=== PATIENT | female | born 1950 | race Caucasian/White ===

== ENCOUNTER → 2016-03-03 | Outpatient (REF) | payer MEDICARE, BC, OTHER | LOC: M SMT 16:52 | PROVIDERS: ATTEND Nurse Practitioner Women's Health | DX: R31.29 Other microscopic hematuria (principal) ==

== ENCOUNTER → 2016-05-26 | Outpatient (CLI) | payer MEDICARE, BC ==
--- NOTE | 2016-05-26 14:40 | REPMRS ---
Patient History The patient states she had a clinical breast exam in 05/22 Patient is postmenopausal and had first child at age 29. Family history of breast cancer in maternal aunt under age 50. Benign stereotactic core biopsy of the left breast, January 18, 2009. Benign lumpectomy of the left breast, 1996. Taking estrogen for 6 years 6 months. Digital Woman Screen Mammo: May 26, 2016 - Exam #: [id number] Bilateral CC and MLO view(s) were taken. Technologist: Maria Del Rosario Pendleton, Technologist Prior study comparison: May 14, 2015, digital woman screen mammo performed at [facility]. June 09, 2014, right breast digital mammo diagnostic unilateral, performed at [facility]. FINDINGS: The breast tissue is heterogeneously dense. This may lower the sensitivity of mammography. There is a moderate amount of heterogeneously dense fibroglandular tissue which is fairly symmetric. There is a stable soft tissue mass the inferolateral quadrant of the right breast and a needle biopsy marker clip is seen anteriorly adjacent to a stable nodule in the upper outer quadrant of the left breast. There is no interval development of dominant mass, architectural distortion, or clustered microcalcification typical of malignancy. There has been no change in the appearance of the mammogram from the prior studies. ASSESSMENT: BI-RADS/ACR category 1 mammogram. Negative. Recommendation Routine screening mammogram of both breasts in 1 year (for women over age 40). This mammogram was interpreted with the aid of an FDA-approved computer-aided dectection system. Electronically Signed By: Pantera Doll MD 05/26/16 5751
== END ==
LOC: M WHC 13:12
PROVIDERS: ATTEND Nurse Practitioner Family
DX: Z01.419 Encounter for gynecological examination (general) (routine) without abnormal findings (principal); Z12.31 Encounter for screening mammogram for malignant neoplasm of breast; Z78.0 Asymptomatic menopausal state; Z92.89 Personal history of other medical treatment; Z12.12 Encounter for screening for malignant neoplasm of rectum
CPT/HCPCS: 82270; G0101; G0202

== ENCOUNTER → 2016-08-22 | Outpatient (CLI) | payer MEDICARE, BC, OTHER ==
[~2016-08-22] MED LIST: BUDE180INH; ESTR1CRE; LEVO75TA4; NAPR500T PO; NEXI20CA PO; SALMDISK; SERT-155
--- NOTE | 2016-08-22 13:58 | REP ---
Low-dose lung screening CT without IV contrast: Comparison is a chest CT of 05/27/2009. Scanning is performed without IV contrast and images are presented at lung windowing only. There is a spiculated semi solid density in the anterior segment right lower lobe on images 70 measuring 2.2 cm in diameter. There are two spiculated nodular densities have become confluent at the inferior tip of the lingula on image 64. The more medial nodule measuring 11 mm and the more lateral nodule measuring 11 mm. Once slice a more inferiorly on image 65. These too nodular densities become confluent. There are no other nodules or masses. There are no infiltrates or effusions. Impression: The largest lesion is category 4B. The recommendation of for PET scan and possibly tissue sampling. Signed by Vicente Contreras MD 08/22/2016 01:49 P
== END ==
LOC: M RAD 12:42
PROVIDERS: ATTEND Internal Medicine Pulmonary Disease
DX: Z12.2 Encounter for screening for malignant neoplasm of respiratory organs (principal); R91.8 Other nonspecific abnormal finding of lung field; J44.9 Chronic obstructive pulmonary disease, unspecified; F17.210 Nicotine dependence, cigarettes, uncomplicated

== ENCOUNTER → 2016-09-25 | Outpatient (CLI) | payer MEDICARE, BC, OTHER ==
--- NOTE | 2016-09-25 11:58 | REP ---
RIGHT FOOT SERIES: Four views. HISTORY: Injury. Pain. FINDINGS: Four views of the right foot show overall normal mineralization. There is moderate osteoarthritis at the 1st MTP joint. Overlying soft tissue swelling is seen. No erosive change is seen. No fractures noted. Plantar and Achilles calcaneal spurring is visible on the lateral radiograph. IMPRESSION: No fracture seen. Moderate first MTP joint osteoarthritis. Heel spurs. Signed by Dipak Doll MD 09/25/2016 12:38 P
--- NOTE | 2016-09-25 12:05 | REP ---
Right ankle series: Four views. History: Lateral ankle injury. Pain. Findings: Four views right ankle demonstrate anterolateral soft-tissue swelling. Ankle mortise is intact. No fracture is seen. There is Achilles and plantar calcaneal spurring. Impression: Moderate soft tissue swelling anterolaterally. No fracture seen. Signed by Dipak Doll MD 09/25/2016 12:38 P
== END ==
LOC: M WUC 11:01
PROVIDERS: ATTEND Physician Assistant
DX: M25.571 Pain in right ankle and joints of right foot (principal); M77.31 Calcaneal spur, right foot; M19.071 Primary osteoarthritis, right ankle and foot; M25.471 Effusion, right ankle

== ENCOUNTER → 2016-09-26 | Outpatient (CLI) | payer MEDICARE, BC, OTHER ==
--- NOTE | 2016-09-26 13:57 | REP ---
PET/CT: History: Diagnosing solitary pulmonary nodule right lower lobe. Comparison low-dose screening CT August 22, 2016, non-solid 2.3 cm opacity in the right lower lobe. TECHNIQUE: 51 minutes following the intravenous injection of a 8.6 mCi dose of F-18 FDG, three-dimensional PET scintigraphy is acquired from the skull base to the proximal thighs. Triplanar noncontrast CT scanning is acquired through the same anatomic range for attenuation correction, and image registration with scan parameters optimized to minimize radiation exposure to the patient. PET scintigraphy and CT datasets were fused and displayed on a workstation with multiplanar and projection display capability. PET/CT Findings: Today's accompanying CT study demonstrates that the non-solid 2.3 cm opacity previously noted in the anterobasal segment of the right lower lobe has virtually resolved. Similarly the nodular opacities in the lingula have almost resolved as well with some linear fibrosis or discoid atelectasis. No abnormal hypermetabolic uptake is seen in the thorax. The neck soft tissues are unremarkable. In the abdomen and pelvis, there is normal hepatic, splenic, gastrointestinal, and genitourinary FDG accumulation. Impression: Negative PET scintigraphy. The previously noted nodular densities in the right middle lobe and lingula have virtually resolved consistent with their having been inflammatory. Signed by Dipak Doll MD 09/26/2016 02:58 P
== END ==
LOC: M PLARAD 10:22
PROVIDERS: ATTEND Internal Medicine Pulmonary Disease
DX: R91.1 Solitary pulmonary nodule (principal)
CPT/HCPCS: 78815; A9552

== ENCOUNTER 2016-10-16 10:04 | Emergency (ER) | payer MEDICARE, BC, OTHER ==
[~2016-10-16] VITALS: Ht 162.6 cm; Wt 59.1 kg
[2016-10-16] MEDS ORDERED: LEVO75TA4 (10:19)
[2016-10-16] MEDS ORDERED: SALMDISK (10:19)
[2016-10-16] MEDS ORDERED: SERT-155 (10:19)
[2016-10-16] MEDS ORDERED: ESTR1CRE (10:19)
[2016-10-16] MEDS ORDERED: BUDE180INH (10:19)
[2016-10-16 12:12] LABS: BASO # 0.1 K/mm3 (0.0-0.2); BASO % 0.9 % (0.0-1.0); EOS # 0.2 K/mm3 (0.0-0.50); LARGE UNSTAINED CELL # 0.2 K/mm3 (0.0-0.4); LARGE UNSTAINED CELL % 2.6 % (0.0-4.0); LYMPH # 1.7 K/mm3 (1.5-4.5); LYMPH % 22.1 % (24.0-44.0); MEAN CORPUSCULAR HEMOGLOBIN 34.2 pg (27.0-33.0); MEAN CORPUSCULAR HGB CONC 34.5 g/dl (32.0-36.5); MEAN CORPUSCULAR VOLUME 99.1 fl (80.0-96.0); MONO # 0.3 K/mm3 (0.0-0.8); MONO % 3.7 % (0.0-5.0); NEUTROPHILS # 5.3 K/mm3 (1.8-7.7); NEUTROPHILS % 68.6 % (36.0-66.0); PLATELET COUNT, AUTOMATED 324 k/mm3 (150-450); RED CELL DISTRIBUTION WIDTH 13.1 % (11.5-14.5); WHITE BLOOD COUNT 7.8 K/mm3 (4.0-10.0)
--- NOTE | 2016-10-16 12:49 | REP ---
Clinical: Chest pain and tightness. Technique: PA and lateral. Comparison: 12/21/2014. Findings: Mediastinum and cardiac silhouette normal. Lung carpenter demonstrate chronic interstitial changes without acute consolidation, effusion, or pneumothorax. Skeletal structures are intact. Impression: Chronic stable changes. No acute cardiopulmonary process. Signed by William Dawson MD 10/16/2016 12:41 P
[2016-10-16 12:55] LABS: ANION GAP 10 MEQ/L (8-16); BLOOD UREA NITROGEN 15 MG/DL (7-18); CALCIUM LEVEL 8.8 MG/DL (8.8-10.2); CARBON DIOXIDE LEVEL 25 MEQ/L (21-32); CHLORIDE LEVEL 106 MEQ/L (98-107); CREATININE FOR GFR 0.66 MG/DL (0.55-1.02); GLOMERULAR FILTRATION RATE > 60.0 (>45); GLUCOSE, FASTING 105 MG/DL (80-110); POTASSIUM SERUM 4.3 MEQ/L (3.5-5.1); SODIUM LEVEL 141 MEQ/L (136-145)
[2016-10-16] MEDS ORDERED: NEXI20CA PO (13:11)
[2016-10-16] MEDS ORDERED: NAPR500T PO (13:11)
[2016-10-16 13:18] VITALS: BP 145/79
--- NOTE | 2016-10-16 19:33 | ECGEPIP ---
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 Order Number: [id number] Reading MD: Jerald Mueller Measurements Intervals [place] Rate: 69 P: 45 PA: 194 QRS: 22 QRSD: 87 T: 55 QT: 390 QTc: 420 Interpretive Statements SINUS RHYTHM NO PRIORS Electronically Signed On 10-16-2016 19:33:35 EDT by Jerald Mueller
== END 2016-10-16 13:21 | disposition home or self-care (01) ==
LOC: M ED 10:04
DX: K21.9 Gastro-esophageal reflux disease without esophagitis (principal); S46.912A Strain of unspecified muscle, fascia and tendon at shoulder and upper arm level, left arm, initial encounter; M62.838 Other muscle spasm; Z72.0 Tobacco use

== ENCOUNTER → 2017-05-29 | Outpatient (REF) | payer MEDICARE, OTHER | LOC: M SFHCWAGY 13:28 | DX: Z12.4 Encounter for screening for malignant neoplasm of cervix (principal) | CPT/HCPCS: G0123 ==

== ENCOUNTER → 2017-05-29 | Outpatient (CLI) | payer MEDICARE, BC | LOC: M WHC 12:58 | DX: Z12.31 Encounter for screening mammogram for malignant neoplasm of breast (principal); Z78.0 Asymptomatic menopausal state; Z92.89 Personal history of other medical treatment; Z12.12 Encounter for screening for malignant neoplasm of rectum; Z12.4 Encounter for screening for malignant neoplasm of cervix | CPT/HCPCS: 77067; G0123 ==

== ENCOUNTER → 2018-03-05 | Outpatient (CLI) | payer MEDICARE, BC, OTHER ==
[~2018-03-05] MED LIST changes: +NAPR-50 PO; -NAPR500T PO
--- NOTE | 2018-03-05 12:43 | REP ---
Clinical: Lung screening. History of nicotine dependence Comparison: 08/22/2016 Technique: Axial low-dose noncontrast images from the thoracic inlet to the upper abdomen using lung screening technique. Findings: The lung carpenter are well-aerated. Very minimal residual scarring at the lingula is identified. No consolidation, significant nodule or mass lesion is appreciated. Previously noted areas of concern in the right lower lobe and lingula (at the above-mentioned area of residual scarring) have resolved and a previous PET CT was performed and negative for suspicious activity. No pleural effusion/reaction or pneumothorax. Tracheobronchial tree is patent. Mediastinum demonstrates chronic calcified right hilar lymph nodes consistent with prior granulomas disease. Impression: Lung-RADS category I. No nodule or suspicious abnormality. Management recommendations include annual low dose CT evaluation. Electronically Signed by William Dawson MD 03/05/2018 12:34 P
== END ==
LOC: M RAD 11:31
PROVIDERS: ATTEND Internal Medicine Pulmonary Disease
DX: Z12.2 Encounter for screening for malignant neoplasm of respiratory organs (principal); J44.9 Chronic obstructive pulmonary disease, unspecified; F17.218 Nicotine dependence, cigarettes, with other nicotine-induced disorders

== ENCOUNTER → 2018-06-10 | Outpatient (CLI) | payer MEDICARE, BC ==
[~2018-06-10] MED LIST changes: -NAPR-50 PO; +NAPR-837 PO
--- NOTE | 2018-06-10 09:14 | REPMRS ---
Patient History The patient states she had a clinical breast exam in 11/2017. Patient is postmenopausal and had first child at age 29. Family history of breast cancer under age 50 in maternal aunt. Benign stereotactic core biopsy of the left breast, January 18, 2009. Benign lumpectomy of the left breast, 1996. Taking estrogen for 8 years 6 months. 3D TOMOSYNTHESIS WAS PERFORMED. Digital Woman Screen Mammo: June 10, 2018 - Exam #: [id number] Bilateral CC and MLO view(s) were taken. Technologist: Michell Nicolas, Technologist Prior study comparison: May 29, 2017, digital woman screen mammo performed at [facility]. May 26, 2016, digital woman screen mammo performed at [facility]. FINDINGS: The breast tissue is heterogeneously dense. This may lower the sensitivity of mammography. There is a fairly symmetric fibroglandular pattern in both breasts. There has been no interval development of masses, areas of architectural distortion or clusters of microcalcifications typical of malignancy. Assessment: BI-RADS/ACR category 2 mammogram. Benign Findings. Recommendation Routine screening mammogram of both breasts in 1 year (for women over age 40). This mammogram was interpreted with the aid of an FDA-approved computer-aided dectection system. Electronically Signed By: Vicente Cano MD 06/10/18 0913
--- NOTE | 2018-06-11 13:44 | DEXA ---
AP SPINE L1 - L4 0.911 -2.3 -0.6 LT FEMUR TOTAL 0.856 -1.2 0.2 LT NECK 0.739 -2.2 -0.5 RT FEMUR TOTAL 0.820 -1.5 -0.1 RT NECK 0.713 -2.3 -0.7 TOTAL BODY TOTAL OTHER COMMENTS: There is low bone density of the spine and hips. The increased density of the spine does not represent a significant change. The decreased density of the left hip does represent a significant change. The decreased density of the right hip does not represent a significant change. The density of the spine has decreased 7.1% since the initial exam on 01/23/2000. The spine density has increased 0.2% since the most recent exam on 05/18/2015. The density of the left hip has decreased 10.6% since the initial exam on 01/23/2000. The density of the left hip has decreased 7.6% since the most recent exam on 05/18/2015. The density of the right hip has decreased 7.6% since the initial exam on 01/23/2000. The density of the right hip has decreased 1.7% since the most recent exam on 05/18/2015. FOLLOW-UP: Recommendation for the next bone density exam: 2 years. MARK
== END ==
LOC: M WHC 08:11
PROVIDERS: ATTEND Nurse Practitioner Family
DX: Z01.419 Encounter for gynecological examination (general) (routine) without abnormal findings (principal); Z12.31 Encounter for screening mammogram for malignant neoplasm of breast; M81.0 Age-related osteoporosis without current pathological fracture; Z78.0 Asymptomatic menopausal state; Z86.018 Personal history of other benign neoplasm; Z92.23 Personal history of estrogen therapy
CPT/HCPCS: 77063; 77067; 77080; G0101

== ENCOUNTER → 2018-07-03 | Outpatient (REF) | payer MEDICARE, OTHER | LOC: M LAB REF 15:25 | PROVIDERS: ATTEND Otolaryngology | DX: J01.00 Acute maxillary sinusitis, unspecified (principal) ==

== ENCOUNTER → 2019-03-14 | Outpatient (CLI) | payer MEDICARE, BC, OTHER ==
[~2019-03-14] MED LIST changes: -SERT-155; +SERT50TA29
--- NOTE | 2019-03-14 14:09 | REP ---
CT chest without contrast: Low-dose screening exam. History: Lung cancer screening. 53 pack year history of tobacco use. Comparison CT studies of the chest are from August 22, 2016, March 05, 2018. CT findings: The lungs are hyperinflated as before. There are granulomatous lymph node calcifications in the right hilus also unchanged. There are some scattered vascular calcification. Today's CT study demonstrates inspissated endobronchial secretions in the bronchial tree in the right lower lobe and to a lesser extent left lower lobe. No central hilar or bronchial lesion is seen. The findings are consistent with bronchitis. No significant pulmonary nodule or mass lesion is observed. There is minimal pleuroparenchymal fibrosis in the left base involving the lingula. Study is otherwise negative. Impression: Lung-RADS category 2S findings. Bronchitis picture with inspissated endobronchial secretions in the lower lobes bilaterally, right greater than left. No suspicious pulmonary nodule or mass. Repeat screening study recommended 1 year. Electronically Signed by Dipak Doll MD 03/14/2019 03:52 P
== END ==
LOC: M RAD 13:11
PROVIDERS: ATTEND Internal Medicine Pulmonary Disease
DX: Z12.2 Encounter for screening for malignant neoplasm of respiratory organs (principal); F17.218 Nicotine dependence, cigarettes, with other nicotine-induced disorders; J84.10 Pulmonary fibrosis, unspecified

== ENCOUNTER → 2019-03-20 | Outpatient (CLI) | payer MEDICARE, BC, OTHER ==
[2019-03-20 11:16] LABS: BASO # 0.1 10^3/uL (0.0-0.2); BASO % 1.4 % (0.0-1.0); EOS # 0.1 10^3/uL (0.0-0.5); EOS % 1.6 % (0.0-3.0); HEMATOCRIT 44.9 % (36.0-47.0); HEMOGLOBIN 15.3 g/dl (12.0-15.5); LYMPH # 2.2 10^3/uL (1.5-5.0); LYMPH % 30.1 % (24.0-44.0); MEAN CORPUSCULAR HEMOGLOBIN 32.7 pg (27.0-33.0); MEAN CORPUSCULAR HGB CONC 34.1 g/dl (32.0-36.5); MEAN CORPUSCULAR VOLUME 95.9 fl (80.0-96.0); MONO # 0.8 10^3/uL (0.0-0.8); MONO % 11.2 % (0.0-5.0); NEUTROPHILS % 55.2 % (36.0-66.0); PLATELET COUNT, AUTOMATED 320 10^3/uL (150-450); RED BLOOD COUNT 4.68 10^6/uL (4.00-5.40); WHITE BLOOD COUNT 7.3 10^3/uL (4.0-10.0)
[2019-03-20 11:49] LABS: THYROID STIMULATING HORMONE 0.255 uIU/ML (0.358-3.740); THYROXINE (T4) 10.2 UG/DL (4.5-12.0)
[2019-03-20 11:52] LABS: FOLLICLE STIMULATING HORMONE 71.7 mIU/mL; LUTEINIZING HORMONE 46.7 mIU/mL
[2019-03-22 00:07] LABS: ANTINUCLEAR ANTIBODIES DIRECT Negative (Negative); DEHYDROEPIANDROSTERONE SULFATE 20.7 ug/dL (20.4-186.6); TESTOSTERONE FREE (DIRECT) 0.7 pg/mL (0.0-4.2)
== END ==
LOC: M LAB 10:33
PROVIDERS: ATTEND Nurse Practitioner
DX: L65.8 Other specified nonscarring hair loss (principal)

== ENCOUNTER → 2019-06-09 | Outpatient (CLI) | payer MEDICARE, BC ==
--- NOTE | 2019-06-09 16:39 | REPMRS ---
Patient History The patient states she had a clinical breast exam in June 2019. Family history of breast cancer under age 50 in maternal aunt. Benign stereotactic core biopsy of the left breast, January 18, 2009. Benign lumpectomy of the left breast, 1996. Taking estrogen for 8 years 6 months. Digital Woman Screen Mammo: June 09, 2019 - Exam #: [id number] Bilateral CC and MLO view(s) were taken. Technologist: Erma Alarcon, Technologist Prior study comparison: June 10, 2018, bilateral digital woman screen mammo performed at [facility]. May 29, 2017, digital woman screen mammo performed at [facility]. May 26, 2016, digital woman screen mammo performed at [facility]. FINDINGS: The breast tissue is heterogeneously dense. This may lower the sensitivity of mammography. The Volpara volumetric breast density category is: C. There is a needle biopsy marker clip again noted in the left breast upper outer quadrant. There is a stable soft tissue mass containing some calcifications in the right breast unchanged from multiple prior studies. There is a moderate amount of heterogeneously dense fibroglandular tissue which is fairly symmetric. There is no interval development of dominant mass, architectural distortion, or grouped microcalcification typical of malignancy. There has been no change in the appearance of the mammogram from the prior studies. 3-D tomosynthesis shows no additional findings. Assessment: BI-RADS/ACR category 2 mammogram. Benign Findings. Recommendation Routine screening mammogram of both breasts in 1 year (for women over age 40). This patient's Lifetime Breast Cancer RIsk is estimated at 9.2 %. This mammogram was interpreted with the aid of an FDA-approved computer-aided dectection system. Electronically Signed By: Pantera Doll MD 06/09/19 0020
== END ==
LOC: M WHC 15:28
PROVIDERS: ATTEND Nurse Practitioner Family
DX: Z01.411 Encounter for gynecological examination (general) (routine) with abnormal findings (principal); Z12.31 Encounter for screening mammogram for malignant neoplasm of breast; Z86.018 Personal history of other benign neoplasm; Z92.23 Personal history of estrogen therapy
CPT/HCPCS: 77063; 77067; G0101

== ENCOUNTER → 2019-06-20 | Outpatient (CLI) | payer MEDICARE, BC ==
--- NOTE | 2019-06-20 15:08 | REP ---
PELVIC ULTRASOUND: Real-time sonographic evaluation of pelvis performed utilizing transabdominal and endovaginal technique. Bladder measures 9.3 x 6.0 x 9.9 cm. Uterus measures 5.8 x 2.1 x 3.8 cm. Endometrium is not well visualized due to fibroid changes in the uterus. Myometrium is diffusely heterogeneous. Hypoechoic fibroid involving the posterior uterus measures 1.6 x 1.7 x 1.9 cm. No endometrial fluid collection is seen. Ovaries could not be visualized. There is no definite adnexal mass or free fluid. IMPRESSION: Somewhat limited exam due to patient body habitus and bowel gas. There are fibroid changes of the uterus with posterior uterine fibroid having a maximum diameter of 1.9 cm. Endometrium is not well visualized. Ovaries are not visualized. No adnexal mass or free fluid seen.
== END ==
LOC: M WHC 12:50
PROVIDERS: ATTEND Nurse Practitioner Family
DX: N95.0 Postmenopausal bleeding (principal)

== ENCOUNTER → 2020-03-15 | Outpatient (CLI) | payer MEDICARE, BC, OTHER ==
--- NOTE | 2020-03-15 15:40 | REP ---
INDICATION: NICOTINE DEPENDENCE. COMPARISON: Comparison low-dose screening CT studies are dated March 14, 2019 and March 05, 2018.. TECHNIQUE: Low-dose screening study. 3 mm axial images are provided at lung only windows. FINDINGS: The lungs are well inflated and clear. No infiltrate or lung mass is seen. There is a tiny stable subpleural benign nodule along the major fissure in the right lower lobe on page 56 and 99. This is unchanged from the prior studies. No new pulmonary nodule is appreciated. there is at and elongate small soft tissue density representing inspissated mucoid secretions in the left lower lobe anterobasilar segment bronchus. This is a new finding. No other endobronchial disease is seen. There is right apical pleuroparenchymal fibrosis unchanged. IMPRESSION: Lung RADS category 1 findings. Repeat screening study recommended in 1 year. <Electronically signed by Pantera Doll > 03/15/20 [id number]
== END ==
LOC: M RAD 13:05
PROVIDERS: ATTEND Nurse Practitioner Adult Health
DX: Z12.2 Encounter for screening for malignant neoplasm of respiratory organs (principal); F17.218 Nicotine dependence, cigarettes, with other nicotine-induced disorders

== ENCOUNTER → 2020-04-07 | Outpatient (REF) | payer MEDICARE, BC, OTHER | LOC: M LAB REF 16:19 | PROVIDERS: ATTEND Internal Medicine | DX: R63.4 Abnormal weight loss (principal) ==

== ENCOUNTER → 2020-04-19 | Outpatient (REF) | payer MEDICARE, OTHER, BC ==
[2020-04-19 15:18] LABS: BASO # 0.1 10^3/uL (0.0-0.2); BASO % 0.9 % (0.0-1.0); EOS # 0.4 10^3/uL (0.0-0.5); EOS % 4.9 % (0.0-3.0); HEMATOCRIT 47.2 % (36.0-47.0); HEMOGLOBIN 15.7 g/dl (12.0-15.5); LYMPH % 24.7 % (24.0-44.0); MEAN CORPUSCULAR HEMOGLOBIN 33.1 pg (27.0-33.0); MEAN CORPUSCULAR HGB CONC 33.3 g/dl (32.0-36.5); MEAN CORPUSCULAR VOLUME 99.4 fl (80.0-96.0); MONO # 0.9 10^3/uL (0.0-0.8); MONO % 11.6 % (2.0-8.0); NEUTROPHILS # 4.5 10^3/uL (1.5-8.5); NEUTROPHILS % 57.3 % (36.0-66.0); PLATELET COUNT, AUTOMATED 321 10^3/uL (150-450); RED BLOOD COUNT 4.75 10^6/uL (4.00-5.40); WHITE BLOOD COUNT 7.9 10^3/uL (4.0-10.0)
== END ==
LOC: M LAB REF 14:55
PROVIDERS: ATTEND Internal Medicine Pulmonary Disease
DX: J44.1 Chronic obstructive pulmonary disease with (acute) exacerbation (principal)

== ENCOUNTER → 2020-04-21 | Outpatient (REF) | payer MEDICARE, OTHER, BC | LOC: M LAB REF 16:44 | PROVIDERS: ATTEND Internal Medicine Pulmonary Disease | DX: J44.1 Chronic obstructive pulmonary disease with (acute) exacerbation (principal) ==

== ENCOUNTER → 2020-04-24 | Outpatient (CLI) | payer MEDICARE, BC, OTHER ==
--- NOTE | 2020-04-24 12:03 | REP ---
INDICATION: CHRONIC OBSTRUCTIVE PULMONARY DISEASE W ACUTE EXACERBATION. COMPARISON: 10/16/2016. TECHNIQUE: Upright PA and lateral chest. FINDINGS: The lung carpenter are chronically hyperinflated, unchanged. The interstitium is chronically mildly coarsened diffusely, unchanged.. There are no infiltrates, effusions, masses or nodules. Cardiac size is normal. The erasmo, mediastinum and skeletal structures are unremarkable. IMPRESSION: Chronic findings as described. Otherwise, essentially negative PA and lateral chest <Electronically signed by Vicente Contreras > 04/24/20 [id number]
== END ==
LOC: M RAD 11:33
PROVIDERS: ATTEND Internal Medicine Pulmonary Disease
DX: J44.1 Chronic obstructive pulmonary disease with (acute) exacerbation (principal)

== ENCOUNTER → 2020-05-12 | Outpatient (CLI) | payer MEDICARE, BC, OTHER ==
--- NOTE | 2020-05-12 19:48 | REP ---
INDICATION: COPD WITH ACUTE EXACERBATION. COMPARISON: 03/15/2020. TECHNIQUE: CT chest performed without the use of intravenous contrast. Sagittal and coronal reconstruction images are performed. FINDINGS: Lungs: Mild diffuse scattered interstitial fibrotic change is again noted unchanged. There is a new area of mild ill-defined ground-glass infiltrate in the right middle lobe. There is an area of minor ill-defined infiltrate anteriorly and medially in the left upper lobe. Mediastinum: No gross adenopathy. Donna: There are calcified lymph nodes in the right hilum. Axilla: No gross adenopathy. Pleura: No effusion. Heart: Not enlarged. Thoracic aorta: No aneurysm. Upper abdominal structures: There is a small hiatal hernia. Visualized osseous structures: There are degenerative changes of the spine without compression deformity. IMPRESSION: New area of mild ill-defined ground-glass infiltrate in the right middle lobe, with a smaller area of infiltrate anteriorly medially in the left upper lobe. Otherwise stable exam. <Electronically signed by Viecnte Cano > 05/12/20 0322
== END ==
LOC: M RAD 17:30
PROVIDERS: ATTEND Internal Medicine Pulmonary Disease
DX: J44.1 Chronic obstructive pulmonary disease with (acute) exacerbation (principal)

== ENCOUNTER → 2020-05-13 | Outpatient (CLI) | payer MEDICARE, BC, OTHER ==
[~2020-05-13] MED LIST changes: +E-Z-GAS II EFFERVESCENT PACKET (SODIUM BICARB./CITRIC ACID/SIMETHICONE) As Ordered ONE; +E-Z-HD 98% w/w 340GM SUSP BTL As Ordered ONE; +E-Z-PAQUE 96% w/w SUSP 176GM BTL As Ordered ONE
--- NOTE | 2020-05-13 17:06 | REP ---
INDICATION: GERD EPIGASTRIC PAIN. COMPARISON: None TECHNIQUE: This procedure was performed by Ciarra Guevara [facility], under the direct supervision of Dr. Cano. Images were reviewed with Dr. Cano prior to dictation. Liquid barium and gas producing crystals were given in the erect position, as well as liquid barium in the prone oblique position in order to perform a double contrast upper GI examination. FINDINGS: The driller and broacher film shows no organomegaly or pathological masses. The intestinal gas pattern is unremarkable. The oral and pharyngeal stages of deglutition were unremarkable. Esophageal transport is prompt and efficient and there is no evidence of esophagitis, stricture, or mucosal ring. There is no evidence of a hiatal hernia. There was no gastroesophageal reflux noted . The stomach quijano are normally outlined. The rugal folds are smooth and regular. There is no gastritis, neoplasm, or ulcerative disease. The duodenal quijano are normally outlined. The mucosal folds are smooth and regular. There is no duodenitis, peptic ulcer disease or neoplasm. The visualized portion of the proximal small bowel appears normal in course and caliber. IMPRESSION: Unremarkable upper GI exam. 0.5 minutes of fluoroscopy time was utilized for this procedure. Some fluoroscopic images are performed with last image hold technology. These images require no additional radiation. <Electronically signed by Ciarra Guevara > 05/13/20 1532 <Electronically signed by Vicente Cano > 05/13/20 1702
== END ==
LOC: M RAD 09:24
PROVIDERS: ATTEND Surgery
DX: K21.9 Gastro-esophageal reflux disease without esophagitis (principal)

== ENCOUNTER → 2020-06-07 | Outpatient (CLI) | payer MEDICARE, BC, OTHER ==
[~2020-06-07] MED LIST changes: -E-Z-GAS II EFFERVESCENT PACKET (SODIUM BICARB./CITRIC ACID/SIMETHICONE) As Ordered ONE; -E-Z-HD 98% w/w 340GM SUSP BTL As Ordered ONE; -E-Z-PAQUE 96% w/w SUSP 176GM BTL As Ordered ONE
--- NOTE | 2020-06-07 18:02 | REP ---
INDICATION: PNEUMONIA, UNSPECIFIED ORGANISM. COMPARISON: Comparison chest x-ray April 24, 2020. TECHNIQUE: Two views.. FINDINGS: The lungs are hyperinflated but free of infiltrate. Pleural angles are sharp. Heart is not enlarged. Pulmonary vasculature is not increased. There is a mild S-shaped thoracic and lumbar curvature unchanged. No acute bony abnormality is seen. IMPRESSION: No active cardiopulmonary disease.. <Electronically signed by Pantera Doll > 06/07/20 1799
== END ==
LOC: M RAD 17:18
PROVIDERS: ATTEND Internal Medicine Pulmonary Disease
DX: J18.9 Pneumonia, unspecified organism (principal)

== ENCOUNTER → 2020-06-22 | Outpatient (CLI) | payer MEDICARE, OTHER ==
--- NOTE | 2020-06-22 16:51 | REPMRS ---
Patient History The patient states she had a clinical breast exam in June 2020. Family history of breast cancer under age 50 in maternal aunt. Benign stereotactic core biopsy of the left breast, January 18, 2009. Benign lumpectomy of the left breast, 1996. Taking estrogen for 8 years 6 months. No breast complaints today Patient signed the MRS sheet 1st covid vaccine 03/20/20-left arm-Moderna 2nd covid 04/17/20-left arm Priors on PACS Patient Identification Verified Digital Woman Screen Mammo: June 22, 2020 - Exam #: [id number] Bilateral CC and MLO view(s) were taken. Technologist: Erma Alarcon, Technologist Prior study comparison: June 09, 2019, bilateral digital woman screen mammo performed at [facility]. June 10, 2018, bilateral digital woman screen mammo performed at [facility]. May 29, 2017, digital woman screen mammo performed at [facility]. June 09, 2014, right breast ultrasound unilateral limited, performed at [facility]. June 09, 2014, right breast digital mammo diagnostic unilateral, performed at [facility]. FINDINGS: The breast tissue is heterogeneously dense. This may lower the sensitivity of mammography. The Volpara volumetric breast density category is: C. There is a needle biopsy marker clip again noted in the left breast. There is a group of benign-appearing smudgy calcifications within the dependent portion of a cyst in the right breast laterally unchanged from multiple prior studies. This consistent with benign milk of calcium type calcifications. This was identified by ultrasound and mammography June 09, 2014. There is a moderate amount of heterogeneously dense fibroglandular tissue which is fairly symmetric. There is no interval development of dominant mass, architectural distortion, or grouped microcalcification typical of malignancy. There has been no change in the appearance of the mammogram from the prior studies. 3-D tomosynthesis shows no additional findings. Assessment: BI-RADS/ACR category 2 mammogram. Benign Findings. Recommendation Routine screening mammogram of both breasts in 1 year (for women over age 40). This patient's [facility] Lifetime Breast Cancer RIsk is estimated at 8.7 %. This mammogram was interpreted with the aid of an FDA-approved computer-aided dectection system. Electronically Signed By: Pantera Doll MD 06/22/20 1400
== END ==
LOC: M WHC 15:01
PROVIDERS: ATTEND Nurse Practitioner Women's Health
DX: Z01.419 Encounter for gynecological examination (general) (routine) without abnormal findings (principal); Z12.31 Encounter for screening mammogram for malignant neoplasm of breast; Z86.018 Personal history of other benign neoplasm; Z92.23 Personal history of estrogen therapy
CPT/HCPCS: 77063; 77067; G0101

== ENCOUNTER → 2020-07-01 | Outpatient (CLI) | payer MEDICARE, BC ==
--- NOTE | 2020-07-01 14:24 | DEXAMM ---
INDICATION: M85.80 LOW BONE DENSITY,Z78.0 POSTMENOPAUSAL STATUS. COMPARISON: Multiple comparison studies the most recent of which is from June 10, 2018 and the most remote is dated January 23, 2000. TECHNIQUE: Bone density was measured using dual-energy x-ray absorptionmetry (DEXA). FINDINGS: AP SPINE L1-L4 BMD 0.868 g/cm2 Young Adult T-Score -2.6 Age Matched Z-Score -0.9. LT FEMUR, TOTAL BMD 0.837 g/cm2 Young Adult T-Score -1.4 Age Matched Z-Score 0.2. LT NECK BMD 0.734 g/cm2 Young Adult T-Score -2.2 Age Matched Z-Score -0.4. RT FEMUR, TOTAL BMD 0.774 g/cm2 Young Adult T-Score -1.9 Age Matched Z-Score -0.3. RT NECK BMD 0.679 g/cm2 Young Adult T-Score -2.6 Age Matched Z-Score -0.8. IMPRESSION: There is osteoporosis of the spine. There is low bone density of the left hip. There is osteoporosis of the right hip. The density of the spine has decreased 11.5% since the initial exam on January 23, 2000. The density of the spine decreased 4.7% since most recent exam on June 10, 2018. The density of the left hip has decreased 12.5% since initial exam on January 23, 2000. The density of the left hip has decreased 2.2% since most recent exam on June 10, 2018. The density of the right hip has decreased 11.5% since the initial exam on January 23, 2000. The density of the right hip has decreased 5.6% since the most recent exam on June 10, 2018. FOLLOW-UP: Recommendation for the next bone density exam: 2 years. <Electronically signed by Pantera Doll > 07/01/20 1428
== END ==
LOC: M WHC 13:35
PROVIDERS: ATTEND Nurse Practitioner Women's Health
DX: M85.852 Other specified disorders of bone density and structure, left thigh (principal); Z78.0 Asymptomatic menopausal state; M81.0 Age-related osteoporosis without current pathological fracture

== ENCOUNTER → 2020-07-06 | Outpatient (REF) | payer MEDICARE, BC ==
[2020-07-06 18:12] LABS: C REACTIVE PROTEIN QUANTITATIV 0.56 MG/DL (0.00-0.30)
[2020-07-07 18:16] LABS: RHEUMATOID FACTOR QUANT < 10.0 IU/ML (<15.0)
== END ==
LOC: M LAB REF 17:04
PROVIDERS: ATTEND Internal Medicine
DX: M25.50 Pain in unspecified joint (principal)

== ENCOUNTER → 2020-08-24 | Outpatient (CLI) | payer MEDICARE, BC, OTHER ==
[~2020-08-24] MED LIST changes: +ISOVUE-370 76% 100ML VIAL As Ordered ONE
--- NOTE | 2020-08-24 17:07 | REPVR ---
PROCEDURE INFORMATION: Exam: CT Neck With Contrast Exam date and time: 08/24/2020 4:09 PM Age: 69 years old Clinical indication: Mass, lump, or swelling in neck; Additional info: Swelling mass lump in neck TECHNIQUE: Imaging protocol: Computed tomography images of the neck with contrast. Radiation optimization: All CT scans at this facility use at least one of these dose optimization techniques: automated exposure control; mA and/or kV adjustment per patient size (includes targeted exams where dose is matched to clinical indication); or iterative reconstruction. Contrast material: ISOVUE 370; Contrast volume: 75 ml; Contrast route: INTRAVENOUS (IV); COMPARISON: PT PET/CT Skull/mid thigh 09/26/2016 12:19 PM FINDINGS: Nasopharynx: Unremarkable. Oropharynx: Unremarkable. No significant tonsillar enlargement. Hypopharynx: Unremarkable. Larynx: Unremarkable. Normal epiglottis. Retropharyngeal space: Unremarkable. Submandibular/Parotid glands: Normal. Glands are normal in size. Thyroid: Normal. No enlarged or calcified nodules. Lymph nodes: Unremarkable. No lymphadenopathy. Trachea: Visualized trachea is unremarkable. Lungs: Unremarkable as visualized. Bones/joints: Unremarkable. No acute fracture. Soft tissues: Unremarkable. No significant soft tissue swelling. IMPRESSION: No acute findings. Electronically signed by: Avel Nettles On 08/24/2020 17:07:29 PM
== END ==
LOC: M RAD 15:51
PROVIDERS: ATTEND Physician Assistant Medical
DX: R22.1 Localized swelling, mass and lump, neck (principal)
CPT/HCPCS: 70491; Q9967

== ENCOUNTER → 2020-09-18 | Outpatient (CLI) | payer MEDICARE, BC, OTHER ==
[~2020-09-18] MED LIST changes: -ISOVUE-370 76% 100ML VIAL As Ordered ONE
== END ==
LOC: M LABSMTC 10:20
PROVIDERS: ATTEND Anesthesiology
DX: Z01.812 Encounter for preprocedural laboratory examination (principal); Z20.822 Contact with and (suspected) exposure to COVID-19

== ENCOUNTER 2020-09-23 09:50 | Day surgery (SDC) | payer MEDICARE, BC, OTHER ==
[~2020-09-23] VITALS: Ht 160 cm; Wt 55.7 kg
[~2020-09-23 09:50] MED LIST changes: +ALBU8.5H; +ALBU83IN; +BUDE180INH INH; +D31000TA2 PO; +ESTR0.1C5; +FLON1SPR NARES; +LATA0.0015; +LEVO88TA3; +LR 1,000 ML IV ONE; +OMEP-218; +VITMTA PO
[2020-09-23] MEDS ORDERED: LIDOCAINE 2% 100MG/5ML SDV (FOR ANES.) As Ordered ONE (13:39)
[2020-09-23] MEDS ORDERED: SUGAMMADEX SODIUM 500 MG/5 ML VIAL (BRIDION) As Ordered ONE (13:39)
[2020-09-23] MEDS ORDERED: ROCURONIUM BROMIDE 50 MG/5 ML VIAL As Ordered ONE ×2 (13:39→14:55)
[2020-09-23] MEDS ORDERED: dexameTHASONE 4 MG/ML 1ML VIAL (J1100 PER 1MG) As Ordered ONE ×2 (13:39→14:47)
[2020-09-23] MEDS ORDERED: ACETAMINOPHEN 1000MG 100ML IV BTL (OFIRMEV) (J0131 PER 10MG) As Ordered ONE (13:39)
[2020-09-23] MEDS ORDERED: ONDANSETRON 4MG/2ML VIAL As Ordered ONE (13:39)
[2020-09-23] MEDS ORDERED: MIDAZOLAM INJ 2MG/2ML VIAL (J2250 PER 1MG) As Ordered ONE ×2 (13:39→16:21)
[2020-09-23] MEDS ORDERED: KETOROLAC 60MG 2ML VIAL As Ordered ONE (13:39)
[2020-09-23] MEDS ORDERED: propofoL 200 MG/20 ML VIAL As Ordered ONE (13:39)
[2020-09-23] MEDS ORDERED: fentaNYL 100 MCG/2 ML INJECTION (J3010) As Ordered ONE ×2 (13:40→15:55)
[2020-09-23] MEDS: fentaNYL 100 MCG/2 ML INJECTION (J3010) IV PRN ×2 (13:57→16:04)
[2020-09-23] MEDS ORDERED: EPINEPHrine 1MG/ML INJ 30ML MD-VIAL As Ordered ONE (14:00)
[2020-09-23] MEDS ORDERED: SILVER NITRATE APPLICATOR As Ordered ONE (14:00)
[2020-09-23] MEDS ORDERED: METHYLENE BLUE 0.5% (5MG/ML) 10 ML AMP (PROVAYBLUE) As Ordered ONE (14:00)
[2020-09-23] MEDS ORDERED: LIDOCAINE W/EPINEPHRINE 1% 20ML VIAL As Ordered ONE (14:00)
--- NOTE | 2020-09-23 14:35 | ECGEPIP ---
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 Electronically Signed on 09-23-2020 14:35:37 EDT by Saurav Tillman
[2020-09-23] MEDS ORDERED: LABETALOL 100MG/20ML VIAL As Ordered ONE (15:04)
[2020-09-23] MEDS ORDERED: LR 1,000 ML IV SCH ×2 (16:00→16:05)
[2020-09-23] MEDS ORDERED: oxyCODONE 5MG TAB PO PRN (16:00)
[2020-09-23] MEDS ORDERED: ONDANSETRON 4MG/2ML VIAL IV PRN (16:00)
[2020-09-23] MEDS ORDERED: RACEPINEPHrine 2.25 % UD INHA INH SCH (16:30)
[2020-09-23] MEDS ORDERED: MIDAZOLAM INJ 2MG/2ML VIAL (J2250 PER 1MG) IV SCH (16:30)
--- NOTE | 2020-09-23 16:40 | REP ---
INDICATION: POST OP IN PACU. COMPARISON: 06/07/2020. TECHNIQUE: Single portable AP view of the chest was performed. FINDINGS: There is no acute infiltrate or pulmonary edema. Lungs are clear. The heart is not significantly enlarged. The mediastinal silhouette is unremarkable. The visualized osseous structures are intact. IMPRESSION: No acute pulmonary disease. <Electronically signed by Vicente Cano > 09/23/20 [id number]
[2020-09-23 17:55] VITALS: BP 142/85
[2020-09-23] MEDS ORDERED: RACEPINEPHrine 2.25 % UD INHA As Ordered ONE (22:19)
--- NOTE | 2020-10-05 17:46 | RO ---
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 PROCEDURE PERFORMED: 1. Nasal endoscopy with biopsy of the nasopharyngeal mass. 2. Direct suspension microlaryngoscopy with biopsy of the base of tongue. SURGEON: Dre Zhang MD BUSINESS DEVELOPMENT PROFESSIONAL: ANESTHESIA: General CLINICAL PREAMBLE: This 70-year-old woman presented to the office with a history of hoarseness. CT scan of the neck revealed evidence of a mass lesion in the nasopharynx as well as base of tongue. Management options including surgery listed above have been discussed. The patient understood and consented to the procedure. OR NARRATION: The patient was identified in preholding and brought to the operating room in stable condition. In supine position on the operating table, the patient received general anesthesia followed by orotracheal intubation without incident. The patient was prepped and draped in the usual fashion for the procedure. Both sides of the nasal cavity were packed using pledgets in 1:100,000 epinephrine. After waiting a period of time, the pledgets were removed. Using the 30-degree rigid nasal endoscope, both sides of the nasal cavity were inspected. No mucosal lesion or mass lesion noted in the nasal cavity. In the nasopharyngeal area, a midline lesion was noted with an ulceration. Using the Blakesley forceps, the biopsy was performed from the nasopharyngeal area . The specimen was sent to pathology per lymphoma protocol. Hemostasis was achieved. At this time, attention was turned to performing the direct laryngoscopy with biopsy of the base of tongue. Palpation of the oral tongue, base of tongue, lateral posterior pharyngeal wall showed no evidence of discrete nodule. Using the Dedo-Pilling laryngoscope, visualization of mucosa of the oral cavity, oral tongue, base of tongue, lateral and posterior pharyngeal wall was carried out. The supraglottis and the glottis as well as the piriform sinus were also inspected and found to be free of mucosal lesion. The base of the tongue was noted to have somewhat hypertrophic lymphoid tissue. The Dedo-Pilling laryngoscope was suspended in the position so the base of tongue could be visualized. Biopsies were obtained from the base of tongue region and sent to pathology per lymphoma protocol as well. Hemostasis was achieved. At the end of the procedure, sponge and instrument counts were correct. No complication was encountered. Estimated blood loss was less than 5 mL. General anesthesia was reversed and the patient was extubated and brought to the recovery room in stable condition.
== END 2020-09-23 18:20 | disposition home or self-care (01) ==
LOC: M SDC 09:50
PROVIDERS: ATTEND Otolaryngology
DX: J34.9 Unspecified disorder of nose and nasal sinuses (principal); Z88.0 Allergy status to penicillin; Z88.1 Allergy status to other antibiotic agents; Z91.012 Allergy to eggs; Z91.013 Allergy to seafood; E03.9 Hypothyroidism, unspecified; K21.9 Gastro-esophageal reflux disease without esophagitis; J44.9 Chronic obstructive pulmonary disease, unspecified; Z79.899 Other long term (current) drug therapy; Z79.52 Long term (current) use of systemic steroids; F41.9 Anxiety disorder, unspecified; F32.9 Major depressive disorder, single episode, unspecified; F17.218 Nicotine dependence, cigarettes, with other nicotine-induced disorders
CPT/HCPCS: 31237; 31536; 71045; 88305; 93005; J0131; J1100; J1885; J2250; J2405; J3010; Q9968

== ENCOUNTER → 2020-11-29 | Outpatient (REF) | payer MEDICARE, BC, OTHER ==
[~2020-11-29] MED LIST changes: -LR 1,000 ML IV ONE
[2020-11-29 17:10] LABS: BASO # 0.1 10^3/uL (0.0-0.2); EOS # 0.2 10^3/uL (0.0-0.5); EOS % 3.1 % (0.0-3.0); HEMATOCRIT 44.5 % (36.0-47.0); HEMOGLOBIN 14.6 g/dl (12.0-15.5); LYMPH # 2.3 10^3/uL (1.5-5.0); LYMPH % 32.8 % (24.0-44.0); MEAN CORPUSCULAR HEMOGLOBIN 32.5 pg (27.0-33.0); MEAN CORPUSCULAR HGB CONC 32.8 g/dl (32.0-36.5); MEAN CORPUSCULAR VOLUME 99.1 fl (80.0-96.0); MONO # 0.6 10^3/uL (0.0-0.8); NEUTROPHILS # 3.8 10^3/uL (1.5-8.5); NEUTROPHILS % 53.8 % (36.0-66.0); PLATELET COUNT, AUTOMATED 335 10^3/uL (150-450); RED BLOOD COUNT 4.49 10^6/uL (4.00-5.40); WHITE BLOOD COUNT 7.1 10^3/uL (4.0-10.0)
== END ==
LOC: M LAB REF 16:33
PROVIDERS: ATTEND Internal Medicine
DX: J44.9 Chronic obstructive pulmonary disease, unspecified (principal)

== ENCOUNTER → 2021-09-23 | Outpatient (CLI) | payer MEDICARE, BC, OTHER ==
[~2021-09-23] MED LIST changes: +ALBU2.5V10; -ALBU83IN; -D31000TA2 PO; +OMEP-173; -OMEP-218; +VITA100093 PO
== END ==
LOC: M RAD 08:12
PROVIDERS: ATTEND Internal Medicine Pulmonary Disease
DX: F17.210 Nicotine dependence, cigarettes, uncomplicated (principal)

== ENCOUNTER → 2021-11-02 | Outpatient (CLI) | payer MEDICARE, BC, OTHER | LOC: M WHC 13:51 | PROVIDERS: ATTEND Advanced Practice Midwife | DX: Z12.31 Encounter for screening mammogram for malignant neoplasm of breast (principal); R92.2 Inconclusive mammogram ==

== ENCOUNTER → 2021-12-01 | Outpatient (CLI) | payer MEDICARE, BC, OTHER | LOC: M WUC 11:50 | PROVIDERS: ATTEND Internal Medicine | DX: M25.541 Pain in joints of right hand (principal); M25.542 Pain in joints of left hand; M79.89 Other specified soft tissue disorders ==

== ENCOUNTER → 2021-12-06 | Outpatient (CLI) | payer MEDICARE, BC, OTHER | LOC: M WHC 12:20 | PROVIDERS: ATTEND Advanced Practice Midwife | DX: R92.8 Other abnormal and inconclusive findings on diagnostic imaging of breast (principal) | CPT/HCPCS: 77065; G0279 ==

== ENCOUNTER → 2022-01-05 | Outpatient (CLI) | payer MEDICARE, BC, OTHER | LOC: M RAD 10:01 | PROVIDERS: ATTEND Nurse Practitioner Adult Health | DX: J44.9 Chronic obstructive pulmonary disease, unspecified (principal) ==

== ENCOUNTER → 2022-01-06 | Outpatient (REF) | payer MEDICARE, BC, OTHER | LOC: M LAB REF 17:07 | PROVIDERS: ATTEND Internal Medicine | DX: R79.82 Elevated C-reactive protein (CRP) (principal) ==

== ENCOUNTER → 2022-03-07 | Outpatient (REF) | payer MEDICARE, OTHER ==
[2022-03-07 13:49] LABS: C REACTIVE PROTEIN QUANTITATIV 0.5 MG/DL (<1.0)
[2022-03-07 13:51] LABS: RHEUMATOID FACTOR QUANT 4.4 IU/ML (<14)
[2022-03-08 21:08] LABS: ANTINUCLEAR ANTIBODIES DIRECT Negative (Negative); CYCLIC CITRULLINATED PEPTIDE 2 units (0-19)
== END ==
LOC: M LAB REF 12:35
PROVIDERS: ATTEND Internal Medicine
DX: M19.90 Unspecified osteoarthritis, unspecified site (principal)

== ENCOUNTER → 2022-11-15 | Outpatient (CLI) | payer MEDICARE, BC, OTHER | LOC: M RAD 10:54 | PROVIDERS: ATTEND Internal Medicine Pulmonary Disease | DX: Z12.2 Encounter for screening for malignant neoplasm of respiratory organs (principal); Z87.891 Personal history of nicotine dependence; I70.0 Atherosclerosis of aorta; I25.10 Atherosclerotic heart disease of native coronary artery without angina pectoris; R91.8 Other nonspecific abnormal finding of lung field ==

== ENCOUNTER → 2023-06-25 | Outpatient (CLI) | payer MEDICARE, BC | LOC: M PLAIMG 13:18 | PROVIDERS: ATTEND Internal Medicine Pulmonary Disease | DX: J44.9 Chronic obstructive pulmonary disease, unspecified (principal); R91.8 Other nonspecific abnormal finding of lung field ==

== ENCOUNTER → 2023-08-20 | Outpatient (CLI) | payer MEDICARE, BC | LOC: M RAD 14:59 | PROVIDERS: ATTEND Physician Assistant | DX: M25.561 Pain in right knee (principal); M79.89 Other specified soft tissue disorders; M25.461 Effusion, right knee ==

== ENCOUNTER → 2023-09-26 | Outpatient (CLI) | payer MEDICARE, BC | LOC: M WHC 11:04 | PROVIDERS: ATTEND Nurse Practitioner Women's Health | DX: Z12.31 Encounter for screening mammogram for malignant neoplasm of breast (principal) ==

== ENCOUNTER → 2023-09-26 | Outpatient (CLI) | payer MEDICARE, BC | LOC: M WHC 11:05 | PROVIDERS: ATTEND Nurse Practitioner Women's Health | DX: M81.0 Age-related osteoporosis without current pathological fracture (principal) ==

== ENCOUNTER → 2023-12-24 | Outpatient (CLI) | payer MEDICARE, BC ==
[~2023-12-24] MED LIST changes: +BUDE180A2; +BUDE180A2 INH; -BUDE180INH; -BUDE180INH INH
== END ==
LOC: M PLAIMG 11:21
PROVIDERS: ATTEND Internal Medicine Pulmonary Disease
DX: J44.1 Chronic obstructive pulmonary disease with (acute) exacerbation (principal); J47.9 Bronchiectasis, uncomplicated; I25.10 Atherosclerotic heart disease of native coronary artery without angina pectoris; I70.0 Atherosclerosis of aorta; J43.9 Emphysema, unspecified

== ENCOUNTER → 2025-01-13 | Outpatient (CLI) | payer MEDICARE, BC | LOC: M RAD 14:39 | PROVIDERS: ATTEND Internal Medicine Pulmonary Disease | DX: Z87.891 Personal history of nicotine dependence (principal) ==